=== PATIENT | male | born 1990 ===

== ENCOUNTER 2021-07-19 08:03 | Emergency (ER) | payer BC | END 2021-07-19 10:45 | disposition left against medical advice (07) | LOC: MW.ED 08:03 | DX: M54.9 Dorsalgia, unspecified (principal); Z53.21 Procedure and treatment not carried out due to patient leaving prior to being seen by health care provider ==

== ENCOUNTER 2022-11-01 23:12 | Emergency (ER) | payer OTHER, BC ==
[2022-11-01] MEDS ORDERED: Lidocaine/Epineph/Tetracaine 3 ML Syringe TOP ONE (23:34)
[2022-11-01] MEDS ORDERED: Lidocaine 1% 5 ML VIAL INJECT ONE (23:38)
[2022-11-02] MEDS ORDERED: Bacitracin Oint 1 GM U/D Packet TOP ONE (00:48)
[2022-11-02 01:11] VITALS: BP 110/70; PULSE 82
== END 2022-11-02 01:10 | disposition home or self-care (01) ==
LOC: MW.ED 23:12
DX: S61.210A Laceration without foreign body of right index finger without damage to nail, initial encounter (principal); W23.0XXA Caught, crushed, jammed, or pinched between moving objects, initial encounter
CPT/HCPCS: 12001; 73140; 99283; A9270; J3490